=== PATIENT | male | born 1955 | race Caucasian/White ===

== ENCOUNTER 2018-11-29 10:41 | Emergency (ER) | payer OTHER ==
[~2018-11-29] VITALS: Ht 162.6 cm; Wt 67.1 kg
== END 2018-11-29 13:18 | disposition home or self-care (01) ==
LOC: ER 10:41
DX: S51.822A Laceration with foreign body of left forearm, initial encounter (principal); W26.0XXA Contact with knife, initial encounter; Y93.89 Activity, other specified; Y92.018 Other place in single-family (private) house as the place of occurrence of the external cause; Y99.8 Other external cause status

== ENCOUNTER 2024-11-02 07:20 | Outpatient (CLI) | payer OTHER ==
[2024-11-02 08:37] LABS: PH,URINE 5.5 (5.0-8.0); URINE APPEARANCE Clear; URINE BILIRRUBIN Negative (NEGATIVE); URINE BLOOD Negative; URINE COLOR Yellow; URINE GLUCOSE Negative (NEGATIVE); URINE KETONE Negative (NEGATIVE); URINE LEUKOCYTE Negative; URINE NITRATE Negative; URINE PROTEIN Negative (NEGATIVE); URINE UROBILINOGEN 0.2 E.U./dl
[2024-11-02 08:41] LABS: URINE BACTERIA 19.5 uL (0.0-1933); URINE EPITHELIAL CELLS 2.6 uL (0.0-38.8)
[2024-11-02 08:45] LABS: HEMATOCRIT 41.4 % (39.0-48.0); HEMOGLOBIN 14.1 g/dL (13-16.00); MEAN CELL VOLUME 91.1 fL (80.0-100.00); MEAN CORPUSCULAR HEMOGLOBIN 30.9 pg (27.00-32.0); MEAN CORPUSCULAR HGB CONC 33.9 g/dl (32.0-36.0); PLATELET COUNT 254 K/uL (150-450); RED BLOOD COUNT 4.55 M/uL (4.00-6.00); RED CELL DISTRIBUTION WIDTH 12.8 % (11.5-14.5)
[2024-11-02 09:24] LABS: URINE RBC 1.9 uL (0.0-20.8)
[2024-11-02 10:27] LABS: ALBUMIN 3.8 gm/dL (3.4-5.0); BILIRUBIN TOTAL 0.53 mg/dL (0.3-1.2); CALCIUM 9.6 mg/dL (8.5-10.1); CHOL HDL RATIO 2.6 (0-5.0); CREATININE SERUM 0.82 mg/dL (0.70-1.30); GFR 92.88; GLOBULINA 2.9 G/DL (2.4-3.5); POTASSIUM 3.98 mEq/L (3.5-5.1); PROSTATIC SPECIFIC ANTIGEN 3.74 NG/ML (0.010-4.00); TOTAL PROTEIN 6.7 gm/dL (6.4-8.2); TSH 1.46 uIU/mL (0.358-3.74)
[2024-11-02 14:25] LABS: ob POSITIVE (NEGATIVE)
== END 2024-11-02 07:21 | disposition home or self-care (01) ==
LOC: RAD 07:20
DX: D50.9 Iron deficiency anemia, unspecified (principal); N39.0 Urinary tract infection, site not specified; I10 Essential (primary) hypertension; Z12.11 Encounter for screening for malignant neoplasm of colon; I11.9 Hypertensive heart disease without heart failure; E03.8 Other specified hypothyroidism; E78.2 Mixed hyperlipidemia; N40.1 Benign prostatic hyperplasia with lower urinary tract symptoms; I70.0 Atherosclerosis of aorta; I51.7 Cardiomegaly; J44.9 Chronic obstructive pulmonary disease, unspecified